=== PATIENT | male | born 1935 | race Caucasian/White ===

== ENCOUNTER 2017-12-26 09:31 | Day surgery (SDC) | payer MEDICARE, OTHER ==
[~2017-12-26] VITALS: Ht 172.7 cm; Wt 143.4 kg
[~2017-12-26 09:31] MED LIST: AMLO5 PO; ASPI325; ATEN50 PO; CALC.25 PO; CELE200; CHOL10002 PO; CLIN300 PO; CYCL10 PO; Coumadin5 MG PO; FURO40 PO; GABA100 PO; GLIP5 PO; INSULANPEN SC; ISOD40ER PO; LISI20 PO; METO100ER; MORP15ER PO; Micro-K10 MEQ PO; NIAC500 PO; NITR.4SL; Nitrostat0.4 MG SL; OXYC5 PO; SPIR25 PO; TEMA30 PO
== END 2017-12-26 11:50 | disposition home or self-care (01) ==
LOC: ORSCSDS 09:31
PROVIDERS: Ophthalmology
PROC: 08RK3JZ Replacement of Left Lens with Synthetic Substitute, Percutaneous Approach (ICD-10-PCS; principal; 2017-12-26 11:00)
DX: H25.12 Age-related nuclear cataract, left eye (principal); E11.9 Type 2 diabetes mellitus without complications; I10 Essential (primary) hypertension; I48.91 Unspecified atrial fibrillation; Z79.01 Long term (current) use of anticoagulants; Z79.84 Long term (current) use of oral hypoglycemic drugs; Z79.899 Other long term (current) drug therapy; E66.01 Morbid (severe) obesity due to excess calories; Z68.42 Body mass index [BMI] 45.0-49.9, adult
CPT/HCPCS: 82947; J2250; J3010; V2632

== ENCOUNTER → 2018-02-06 | Outpatient (CLI) | payer MEDICARE, OTHER | LOC: LAB 16:55 | DX: L08.9 Local infection of the skin and subcutaneous tissue, unspecified (principal) | CPT/HCPCS: 87070; 87205 ==

== ENCOUNTER → 2018-04-04 | Outpatient (CLI) | payer MEDICARE, OTHER | LOC: LAB SHORT 17:19 → LAB 17:19 | DX: L97.519 Non-pressure chronic ulcer of other part of right foot with unspecified severity (principal) | CPT/HCPCS: 87070; 87077; 87186; 87205 ==

== ENCOUNTER → 2018-05-01 | Outpatient (CLI) | payer MEDICARE, OTHER ==
[2018-05-01 17:14] LABS: International Normalized Ratio 2.03; Prothrombin Time Results 20.1 Sec (9.7-11.5)
== END | disposition home or self-care (01) ==
LOC: LAB SHORT 12:20 → LAB 12:20
PROVIDERS: Internal Medicine Hematology & Oncology
DX: Z79.01 Long term (current) use of anticoagulants (principal); Z51.81 Encounter for therapeutic drug level monitoring
CPT/HCPCS: 85610

== ENCOUNTER → 2018-05-02 | Outpatient (CLI) | payer MEDICARE, OTHER | LOC: LAB SHORT 16:15 → LAB 16:15 | DX: L08.9 Local infection of the skin and subcutaneous tissue, unspecified (principal); L97.519 Non-pressure chronic ulcer of other part of right foot with unspecified severity; L97.529 Non-pressure chronic ulcer of other part of left foot with unspecified severity; I83.11 Varicose veins of right lower extremity with inflammation; I83.12 Varicose veins of left lower extremity with inflammation; L81.8 Other specified disorders of pigmentation; R60.0 Localized edema | CPT/HCPCS: 87070; 87205 ==

== ENCOUNTER 2018-12-01 19:11 | Emergency (ER) | payer OTHER, MEDICARE ==
[~2018-12-01] VITALS: Ht 177.8 cm; Wt 136.1 kg
[2018-12-01] MEDS ORDERED: SPIR25 PO (19:26)
[2018-12-01] MEDS ORDERED: ALLO100 PO (19:27)
[2018-12-01] MEDS ORDERED: METO25ER PO (19:27)
== END 2018-12-01 21:25 | disposition home or self-care (01) ==
LOC: ER 19:11
DX: M25.551 Pain in right hip (principal); M25.552 Pain in left hip; E11.9 Type 2 diabetes mellitus without complications; I25.2 Old myocardial infarction; I10 Essential (primary) hypertension; E66.9 Obesity, unspecified; E78.00 Pure hypercholesterolemia, unspecified; Z88.0 Allergy status to penicillin; Z88.8 Allergy status to other drugs, medicaments and biological substances; Z91.013 Allergy to seafood; Z91.048 Other nonmedicinal substance allergy status; Z79.899 Other long term (current) drug therapy; Z79.891 Long term (current) use of opiate analgesic; Z79.01 Long term (current) use of anticoagulants; Z79.4 Long term (current) use of insulin
CPT/HCPCS: 51702; 73522; 96372; 99283-25; J1170